=== PATIENT | male | born 1980 | race Caucasian/White ===

== ENCOUNTER 2020-06-21 05:51 | Inpatient (IN) | payer OTHER ==
[2020-06-21] VITALS (18 sets, daily range): BP systolic 74–133; BP diastolic 40–78
[~2020-06-21] VITALS: Ht 185.4 cm; Wt 147.9 kg
[~2020-06-21 05:51] MED LIST: GLIPIZIDE XL10 M1 PO; LISINOPRIL HCTZ1 TA1 PO; LOPRESSOR50 M1 PO; METFORMIN1000 MG PO; NEURONTIN300 MG PO; NIASPAN500 MG PO; NORFLEX100 MG PO; PREDNICOT20 MG PO
[2020-06-21 06:36] LABS: BASO # 0.1 10*3/uL (0.0-0.1); BASO % 0.5 % (0.0-1.0); EOS % 0.3 % (1.0-4.0); LYMPH % 7.1 % (27.0-41.0); MEAN CELL VOLUME 92.8 fl (80.0-94.0); MEAN CORPUSCULAR HGB 28.9 pg (27.0-31.0); MEAN CORPUSCULAR HGB CONC 31.1 g/dl (33.0-37.0); MEAN PLATELET VOLUME 11.4 fl (9.6-12.3); MONO % 7.1 % (3.0-9.0); NEUT # 12.1 10*3/uL (2.3-7.9); PLATELET COUNT AUTOMATED 333 10*3/uL (130-400); RED BLOOD COUNT 3.88 10*6/uL (4.50-5.90); WHITE BLOOD COUNT 14.5 10*3/uL (4.8-10.8)
[2020-06-21 06:54] LABS: ALBUMIN 2.5 gm/dl (3.1-4.5); CREATININE 2.9 mg/dL (0.70-1.30); POTASSIUM 4.4 mmol/L (3.5-5.1); TOTAL PROTEIN 6.7 gm/dL (6.4-8.2); TROPONIN I 0.021 ng/ml (<0.045)
[2020-06-21] MEDS ORDERED: ALLOPURINOL100 MG PO (12:06)
[2020-06-21] MEDS ORDERED: FENOFIBRATE145 M1 PO (12:07)
[2020-06-21] MEDS ORDERED: IRON325 M1 PO (12:09)
[2020-06-21] MEDS ORDERED: HYDRALAZINE HYD50 MG PO (12:11)
[2020-06-21] MEDS ORDERED: LEVOTHYROXINE125 MCG PO (12:12)
[2020-06-21] MEDS ORDERED: PRAVASTATIN SOD40 MG PO (12:14)
[2020-06-21] MEDS ORDERED: FISH OIL 1,0001 EAC4 PO (12:16)
[2020-06-21 21:18] LABS: CREATININE 2.67 mg/dL (0.70-1.30)
[2020-06-22] VITALS: BP 136/79
[2020-06-22 04:00] VITALS: BP 144/81
[2020-06-22 06:33] LABS: BASO % 0.5 % (0.0-1.0); EOS # 0.1 10*3/uL (0.0-0.4); EOS % 1.4 % (1.0-4.0); HEMATOCRIT 33.2 % (42.0-52.0); LYMPH # 0.8 10*3/uL (1.3-4.4); LYMPH % 9.7 % (27.0-41.0); MEAN CELL VOLUME 93.5 fl (80.0-94.0); MEAN PLATELET VOLUME 11.5 fl (9.6-12.3); MONO # 0.7 10*3/uL (0.1-1.0); MONO % 8.4 % (3.0-9.0); NEUT # 6.6 10*3/uL (2.3-7.9); NEUT % 78.1 % (47.0-73.0); PLATELET COUNT AUTOMATED 312 10*3/uL (130-400); RED BLOOD COUNT 3.55 10*6/uL (4.50-5.90); RED CELL DISTRI WIDTH 14.1 % (0-14.5); WHITE BLOOD COUNT 8.4 10*3/uL (4.8-10.8)
[2020-06-22 06:48] LABS: ALBUMIN 2.5 gm/dl (3.1-4.5); CREATININE 2.36 mg/dL (0.70-1.30); POTASSIUM 4.3 mmol/L (3.5-5.1); TOTAL PROTEIN 6.5 gm/dL (6.4-8.2)
[2020-06-22 08:00] VITALS: BP 125/77
[2020-06-22 09:04] LABS: VITAMIN D, 25-HYDROXY 36.4 ng/mL (30-100)
[2020-06-22 12:00] VITALS: BP 142/77
[2020-06-22 12:15] LABS: BILIRUBIN NEGATIVE (NEGATIVE); BLOOD TRACE-LYSED (NEGATIVE); CLARITY CLEAR (CLEAR); COLOR YELLOW (YELLOW); GLUCOSE 3+ (NEGATIVE); KETONE NEGATIVE (NEGATIVE); LEUKO ESTERASE NEGATIVE (NEGATIVE); NITRITE NEGATIVE (NEGATIVE); UROBILINOGEN 0.2 E.U./dl (0.2-1.0)
[2020-06-22 13:26] LABS: BACTERIA 1+
[2020-06-22 16:00] VITALS: BP 163/91
[2020-06-22 20:00] VITALS: BP 131/72
[2020-06-23] VITALS: BP 116/58
[2020-06-23 04:00] VITALS: BP 110/75
[2020-06-23 06:27] LABS: BASO # 0.1 10*3/uL (0.0-0.1); BASO % 0.3 % (0.0-1.0); EOS # 0.1 10*3/uL (0.0-0.4); EOS % 0.6 % (1.0-4.0); HEMATOCRIT 33.3 % (42.0-52.0); LYMPH # 1.3 10*3/uL (1.3-4.4); LYMPH % 8.8 % (27.0-41.0); MEAN CELL VOLUME 94.9 fl (80.0-94.0); MEAN CORPUSCULAR HGB 29.1 pg (27.0-31.0); MEAN CORPUSCULAR HGB CONC 30.6 g/dl (33.0-37.0); MEAN PLATELET VOLUME 11.1 fl (9.6-12.3); MONO # 0.7 10*3/uL (0.1-1.0); MONO % 4.6 % (3.0-9.0); NEUT # 12.9 10*3/uL (2.3-7.9); NEUT % 84.8 % (47.0-73.0); PLATELET COUNT AUTOMATED 300 10*3/uL (130-400); RED BLOOD COUNT 3.51 10*6/uL (4.50-5.90); RED CELL DISTRI WIDTH 14.5 % (0-14.5); WHITE BLOOD COUNT 15.1 10*3/uL (4.8-10.8)
[2020-06-23 06:36] LABS: ALBUMIN 2.3 gm/dl (3.1-4.5); CREATININE 2.3 mg/dL (0.70-1.30); POTASSIUM 4.5 mmol/L (3.5-5.1); TOTAL PROTEIN 6.3 gm/dL (6.4-8.2)
[2020-06-23 08:00] VITALS: BP 120/74
[2020-06-23 16:00] VITALS: BP 133/74
[2020-06-23 20:00] VITALS: BP 147/81
[2020-06-24] VITALS: BP 149/87
[2020-06-24 06:45] LABS: BASO # 0.1 10*3/uL (0.0-0.1); BASO % 0.7 % (0.0-1.0); EOS # 0.3 10*3/uL (0.0-0.4); EOS % 2.9 % (1.0-4.0); HEMATOCRIT 34.2 % (42.0-52.0); LYMPH # 1.5 10*3/uL (1.3-4.4); LYMPH % 17.6 % (27.0-41.0); MEAN CELL VOLUME 94.2 fl (80.0-94.0); MEAN CORPUSCULAR HGB 28.7 pg (27.0-31.0); MEAN CORPUSCULAR HGB CONC 30.4 g/dl (33.0-37.0); MEAN PLATELET VOLUME 11.2 fl (9.6-12.3); MONO # 0.5 10*3/uL (0.1-1.0); MONO % 6.3 % (3.0-9.0); NEUT # 5.9 10*3/uL (2.3-7.9); NEUT % 69.6 % (47.0-73.0); NUCLEATED RED BLOOD CELL 0.2 % (0.0-0.0); PLATELET COUNT AUTOMATED 287 10*3/uL (130-400); RED BLOOD COUNT 3.63 10*6/uL (4.50-5.90); RED CELL DISTRI WIDTH 14.1 % (0-14.5); WHITE BLOOD COUNT 8.5 10*3/uL (4.8-10.8)
[2020-06-24 06:56] LABS: ALBUMIN 2.3 gm/dl (3.1-4.5); CREATININE 2.07 mg/dL (0.70-1.30); POTASSIUM 3.9 mmol/L (3.5-5.1); TOTAL PROTEIN 6.4 gm/dL (6.4-8.2)
[2020-06-24 08:00] VITALS: BP 167/97
[2020-06-24 10:52] VITALS: BP 158/77
[2020-06-24 12:00] VITALS: BP 155/82
[2020-06-24 16:00] VITALS: BP 171/89
[2020-06-25] VITALS: BP 151/79
[2020-06-25 08:00] VITALS: BP 172/97
[2020-06-25 09:53] LABS: HEMATOCRIT 35.2 % (42.0-52.0); MEAN CELL VOLUME 91.4 fl (80.0-94.0); MEAN CORPUSCULAR HGB 28.8 pg (27.0-31.0); MEAN CORPUSCULAR HGB CONC 31.5 g/dl (33.0-37.0); MEAN PLATELET VOLUME 10.3 fl (9.6-12.3); PLATELET COUNT AUTOMATED 280 10*3/uL (130-400); RED BLOOD COUNT 3.85 10*6/uL (4.50-5.90); RED CELL DISTRI WIDTH 13.8 % (0-14.5); WHITE BLOOD COUNT 6.7 10*3/uL (4.8-10.8)
[2020-06-25 09:59] LABS: CREATININE 2.1 mg/dL (0.70-1.30); POTASSIUM 4.1 mmol/L (3.5-5.1)
[2020-06-25 10:33] LABS: ATYPICAL LYMPHS 1 % (0-0); BASOPHILS 1 % (0-1); PLATELET SUFFICIENCY NORMAL (NORMAL); TOTAL CELLS COUNTED 100 #CELLS
[2020-06-25] MEDS ORDERED: METOPROLOL SUCC50 M1 PO (13:08)
[2020-06-25] MEDS ORDERED: DOXYCYCLINE100 MG PO (13:08)
[2020-06-25] MEDS ORDERED: ATORVASTATIN CA20 M1 PO (13:08)
== END 2020-06-25 16:51 | disposition home or self-care (01) | DRG 280 ==
LOC: ED 05:51 → EDHOLD 07:04 → ICCU 07:04 → EDHOLD 07:47 → ICCU 11:08 → 5E 06-23 18:15
PROVIDERS: Emergency Medicine; Internal Medicine; Internal Medicine Nephrology; Student in an Organized Health Care Education/Training Program; ADMIT Internal Medicine
PROC: 3E073KZ Introduction of Other Diagnostic Substance into Coronary Artery, Percutaneous Approach (ICD-10-PCS; principal; 2020-06-23)
PROC: 4A02XM4 Measurement of Cardiac Total Activity, External Approach (ICD-10-PCS; principal; 2020-06-23)
DX: I21.4 Non-ST elevation (NSTEMI) myocardial infarction (principal); N17.0 Acute kidney failure with tubular necrosis; I47.1 Supraventricular tachycardia; E87.2 Acidosis; I48.20 Chronic atrial fibrillation, unspecified; Z68.41 Body mass index [BMI] 40.0-44.9, adult; D64.9 Anemia, unspecified; I10 Essential (primary) hypertension; E78.5 Hyperlipidemia, unspecified; E03.9 Hypothyroidism, unspecified; R79.89 Other specified abnormal findings of blood chemistry; I95.9 Hypotension, unspecified; I48.91 Unspecified atrial fibrillation; E11.65 Type 2 diabetes mellitus with hyperglycemia; R74.0 Nonspecific elevation of levels of transaminase and lactic acid dehydrogenase [LDH]; Z83.3 Family history of diabetes mellitus; Z82.3 Family history of stroke; Z80.8 Family history of malignant neoplasm of other organs or systems

== ENCOUNTER 2020-12-04 08:31 | Inpatient (IN) | payer OTHER ==
[~2020-12-04] VITALS: Ht 185.4 cm; Wt 143.6 kg
[~2020-12-04 08:31] MED LIST changes: +ALLOPURINOL100 MG PO; +ATORVASTATIN CA20 M1 PO; +DOXYCYCLINE100 MG PO; +FENOFIBRATE145 M1 PO; +FISH OIL 1,0001 EAC4 PO; +HYDRALAZINE HYD50 MG PO; +IRON325 M1 PO; +LEVOTHYROXINE125 MCG PO; +METOPROLOL SUCC50 M1 PO; +PRAVASTATIN SOD40 MG PO
[2020-12-04 08:46] VITALS: BP 118/52
[2020-12-04 08:50] VITALS: BP 118/52
[2020-12-04 08:56] LABS: BASO % 0.1 % (0.0-1.0); HEMATOCRIT 38.4 % (42.0-52.0); LYMPH # 0.6 10*3/uL (1.3-4.4); LYMPH % 6.1 % (27.0-41.0); MEAN CELL VOLUME 89.7 fl (80.0-94.0); MEAN CORPUSCULAR HGB 28.3 pg (27.0-31.0); MEAN CORPUSCULAR HGB CONC 31.5 g/dl (33.0-37.0); MEAN PLATELET VOLUME 11.2 fl (9.6-12.3); MONO # 0.4 10*3/uL (0.1-1.0); MONO % 4.6 % (3.0-9.0); NEUT # 8.1 10*3/uL (2.3-7.9); NEUT % 88.8 % (47.0-73.0); PLATELET COUNT AUTOMATED 219 10*3/uL (130-400); RED BLOOD COUNT 4.28 10*6/uL (4.50-5.90); RED CELL DISTRI WIDTH 14.4 % (0-14.5); WHITE BLOOD COUNT 9.1 10*3/uL (4.8-10.8)
[2020-12-04 09:14] LABS: ACT PARTIAL THROMBO TIME 34.2 SECONDS (20.0-32.1)
[2020-12-04 09:16] LABS: ALBUMIN 2.5 gm/dl (3.1-4.5); CREATININE 3.4 mg/dL (0.70-1.30); POTASSIUM 3.7 mmol/L (3.5-5.1); TROPONIN I 0.036 ng/ml (<0.045)
[2020-12-04 09:20] VITALS: BP 110/42
[2020-12-04 11:40] VITALS: BP 124/65
[2020-12-04] MEDS ORDERED: VICTOZA 2-0.6 MG/0.1 SQ (12:03)
[2020-12-04 14:50] LABS: ABG BASE EXCESS -4.6 mmol/L (-2.0-2.0); ARTERIAL BLOOD GAS PH 7.357 (7.35-7.45)
[2020-12-04 16:00] VITALS: BP 127/79
[2020-12-04 18:04] LABS: BILIRUBIN Negative (Negative); BLOOD 1+ (Negative); CLARITY Turbid (Clear); COLOR Yellow (Yellow); GLUCOSE Negative (Negative); KETONE Negative (Negative); LEUKO ESTERASE Negative (Negative); NITRITE Negative (Negative); UROBILINOGEN 0.2 E.U./dl (0.0-1.0)
[2020-12-04 18:12] LABS: BACTERIA 2+
[2020-12-04 20:00] VITALS: BP 84/58
[2020-12-04 20:14] LABS: ABG BASE EXCESS -11.4 mmol/L (-2.0-2.0); ARTERIAL BLOOD GAS PH 7.18 (7.35-7.45)
[2020-12-04 21:12] LABS: CREATININE 3.67 mg/dL (0.70-1.30); POTASSIUM 4.4 mmol/L (3.5-5.1)
[2020-12-05] VITALS (11 sets, daily range): BP systolic 117–155; BP diastolic 70–90
[2020-12-05 00:56] LABS: ABG BASE EXCESS -10.6 mmol/L (-2.0-2.0); ARTERIAL BLOOD GAS PH 7.192 (7.35-7.45)
[2020-12-05 05:51] LABS: ALBUMIN 2.1 gm/dl (3.1-4.5); CREATININE 4.27 mg/dL (0.70-1.30); POTASSIUM 4.7 mmol/L (3.5-5.1); TOTAL PROTEIN 6.8 gm/dL (6.4-8.2)
[2020-12-05 05:56] LABS: THYROID STIM HORMONE (HS) 1.02 uIU/ml (0.358-4.75)
[2020-12-05 06:10] LABS: BASO % 0.1 % (0.0-1.0); HEMATOCRIT 37.9 % (42.0-52.0); LYMPH # 0.5 10*3/uL (1.3-4.4); LYMPH % 5.5 % (27.0-41.0); MEAN CORPUSCULAR HGB 29.1 pg (27.0-31.0); MEAN CORPUSCULAR HGB CONC 31.7 g/dl (33.0-37.0); MEAN PLATELET VOLUME 11.6 fl (9.6-12.3); MONO # 0.5 10*3/uL (0.1-1.0); MONO % 5.5 % (3.0-9.0); NEUT # 7.1 10*3/uL (2.3-7.9); NEUT % 88.2 % (47.0-73.0); PLATELET COUNT AUTOMATED 248 10*3/uL (130-400); RED BLOOD COUNT 4.12 10*6/uL (4.50-5.90); RED CELL DISTRI WIDTH 14.5 % (0-14.5); WHITE BLOOD COUNT 8.1 10*3/uL (4.8-10.8)
[2020-12-05 06:15] LABS: ARTERIAL BLOOD GAS PH 7.212 (7.35-7.45)
[2020-12-05 07:53] LABS: ABG BASE EXCESS -8.4 mmol/L (-2.0-2.0); ARTERIAL BLOOD GAS PH 7.221 (7.35-7.45)
[2020-12-05 08:48] LABS: VITAMIN D, 25-HYDROXY 26.3 ng/mL (30-100)
[2020-12-05 09:12] LABS: FERRITIN 2065.9 ng/mL (22.0-322.0)
[2020-12-05 13:42] LABS: ARTERIAL BLOOD GAS PH 7.238 (7.35-7.45)
[2020-12-05 13:43] LABS: ABG BASE EXCESS -8.3 mmol/L (-2.0-2.0)
[2020-12-05 13:54] LABS: CREATININE 4.62 mg/dL (0.70-1.30); POTASSIUM 4.9 mmol/L (3.5-5.1)
[2020-12-05 17:06] LABS: ABG BASE EXCESS -7.4 mmol/L (-2.0-2.0); ARTERIAL BLOOD GAS PH 7.31 (7.35-7.45)
[2020-12-06] VITALS (12 sets, daily range): BP systolic 100–176; BP diastolic 55–90
[2020-12-06 06:10] LABS: HEMATOCRIT 34.6 % (42.0-52.0); LYMPH # 0.3 10*3/uL (1.3-4.4); LYMPH % 5.4 % (27.0-41.0); MEAN CELL VOLUME 90.3 fl (80.0-94.0); MEAN CORPUSCULAR HGB 28.5 pg (27.0-31.0); MEAN CORPUSCULAR HGB CONC 31.5 g/dl (33.0-37.0); MEAN PLATELET VOLUME 11.9 fl (9.6-12.3); MONO # 0.4 10*3/uL (0.1-1.0); MONO % 8.2 % (3.0-9.0); NEUT # 4.4 10*3/uL (2.3-7.9); NEUT % 84.6 % (47.0-73.0); PLATELET COUNT AUTOMATED 252 10*3/uL (130-400); RED BLOOD COUNT 3.83 10*6/uL (4.50-5.90); RED CELL DISTRI WIDTH 13.6 % (0-14.5); WHITE BLOOD COUNT 5.1 10*3/uL (4.8-10.8)
[2020-12-06 06:16] LABS: CREATININE 5.41 mg/dL (0.70-1.30); POTASSIUM 4.1 mmol/L (3.5-5.1)
[2020-12-06 06:20] LABS: TOTAL PROTEIN 6.2 gm/dL (6.4-8.2)
[2020-12-06 08:18] LABS: ARTERIAL BLOOD GAS PH 7.295 (7.35-7.45)
[2020-12-06 08:19] LABS: ABG BASE EXCESS -5.6 mmol/L (-2.0-2.0)
[2020-12-06 09:01] LABS: LDH 528 U/L (87-241); TRIGLYCERIDES 553 mg/dl (<150)
[2020-12-06 10:09] LABS: HEP B CORE AB, IGM Negative (Negative); HEPATITIS B SURFACE AG Negative (Negative); HEPATITIS C VIRUS ANTIBODY <0.1 s/co (0.0-0.9)
[2020-12-06 19:01] LABS: ARTERIAL BLOOD GAS PH 7.282 (7.35-7.45)
[2020-12-06 19:02] LABS: ABG BASE EXCESS -5.9 mmol/L (-2.0-2.0)
[2020-12-07] VITALS (21 sets, daily range): BP systolic 101–209; BP diastolic 63–113
[2020-12-07 06:07] LABS: CREATININE 6.48 mg/dL (0.70-1.30); POTASSIUM 4.6 mmol/L (3.5-5.1); TOTAL PROTEIN 6.1 gm/dL (6.4-8.2)
[2020-12-07 06:15] LABS: HEMATOCRIT 34.3 % (42.0-52.0); MEAN CELL VOLUME 90.3 fl (80.0-94.0); MEAN CORPUSCULAR HGB 28.4 pg (27.0-31.0); MEAN CORPUSCULAR HGB CONC 31.5 g/dl (33.0-37.0); MEAN PLATELET VOLUME 11.3 fl (9.6-12.3); PLATELET COUNT AUTOMATED 291 10*3/uL (130-400); RED CELL DISTRI WIDTH 14.4 % (0-14.5); WHITE BLOOD COUNT 6.2 10*3/uL (4.8-10.8)
[2020-12-07 06:20] LABS: ACT PARTIAL THROMBO TIME 56.6 SECONDS (20.0-32.1); INTERNATIONAL NORM RATIO 1.1 (2.0-3.5)
[2020-12-07 07:28] LABS: ARTERIAL BLOOD GAS PH 7.299 (7.35-7.45)
[2020-12-07 07:34] LABS: ABG BASE EXCESS -5.1 mmol/L (-2.0-2.0)
[2020-12-07 07:43] LABS: BURR CELLS FEW; PLATELET SUFFICIENCY NORMAL (NORMAL); TOTAL CELLS COUNTED 100 #CELLS
[2020-12-07 11:23] LABS: ARTERIAL BLOOD GAS PH 7.313 (7.35-7.45)
[2020-12-07 11:33] LABS: ABG BASE EXCESS -5.6 mmol/L (-2.0-2.0)
[2020-12-07 14:30] LABS: ABG BASE EXCESS -6.4 mmol/L (-2.0-2.0); ARTERIAL BLOOD GAS PH 7.301 (7.35-7.45)
[2020-12-07 17:04] LABS: ABG BASE EXCESS -6.9 mmol/L (-2.0-2.0); ARTERIAL BLOOD GAS PH 7.252 (7.35-7.45)
[2020-12-08] VITALS (42 sets, daily range): BP systolic 85–190; BP diastolic 53–101
[2020-12-08 06:21] LABS: HEMATOCRIT 37.5 % (42.0-52.0); MEAN CELL VOLUME 91.7 fl (80.0-94.0); MEAN CORPUSCULAR HGB 28.6 pg (27.0-31.0); MEAN CORPUSCULAR HGB CONC 31.2 g/dl (33.0-37.0); MEAN PLATELET VOLUME 11.4 fl (9.6-12.3); NUCLEATED RED BLOOD CELL 0.3 % (0.0-0.0); PLATELET COUNT AUTOMATED 326 10*3/uL (130-400); RED BLOOD COUNT 4.09 10*6/uL (4.50-5.90); RED CELL DISTRI WIDTH 14.6 % (0-14.5); WHITE BLOOD COUNT 7.7 10*3/uL (4.8-10.8)
[2020-12-08 06:41] LABS: POTASSIUM 4.3 mmol/L (3.5-5.1)
[2020-12-08 06:46] LABS: ALBUMIN 2.2 gm/dl (3.1-4.5); CREATININE 7.62 mg/dL (0.70-1.30); TOTAL PROTEIN 6.8 gm/dL (6.4-8.2)
[2020-12-08 07:06] LABS: ACT PARTIAL THROMBO TIME 34.3 SECONDS (20.0-32.1); INTERNATIONAL NORM RATIO 1.1 (2.0-3.5)
[2020-12-08 07:31] LABS: PLATELET SUFFICIENCY NORMAL (NORMAL); TOTAL CELLS COUNTED 100 #CELLS
[2020-12-08 08:16] LABS: ABG BASE EXCESS -7.4 mmol/L (-2.0-2.0); ARTERIAL BLOOD GAS PH 7.24 (7.35-7.45)
[2020-12-08 10:33] LABS: BILIRUBIN Negative (Negative); BLOOD Negative (Negative); CLARITY Cloudy (Clear); COLOR Yellow (Yellow); GLUCOSE Negative (Negative); KETONE Negative (Negative); LEUKO ESTERASE Negative (Negative); NITRITE Negative (Negative); SPECIFIC GRAVITY 1.015 (1.001-1.030); UROBILINOGEN 0.2 E.U./dl (0.0-1.0)
[2020-12-08 11:06] LABS: BACTERIA 3+; CALCIUM OXALATE CRYSTALS 1+; RBC 41-50 rbc/hpf (0-2)
[2020-12-08 13:37] LABS: ARTERIAL BLOOD GAS PH 7.25 (7.35-7.45)
[2020-12-08 13:41] LABS: ABG BASE EXCESS -7.1 mmol/L (-2.0-2.0)
[2020-12-09 06:10] LABS: HEP B CORE AB TOTAL Negative (Negative); HEPATITIS B SURFACE AB Non Reactive (.); HEPATITIS B SURFACE AG Negative (Negative); HEPATITIS C AB <0.1 (0.0-0.9)
== END 2020-12-08 16:40 | disposition short-term general hospital (02) | DRG 208 ==
LOC: ED 08:31 → EDHOLD 10:10 → ICCU 10:10 → EDHOLD 10:18 → ICCU 10:43
PROVIDERS: Emergency Medicine; Internal Medicine; Internal Medicine Critical Care Medicine; Internal Medicine Nephrology; Student in an Organized Health Care Education/Training Program; ADMIT Internal Medicine; ATTEND Internal Medicine
PROC: XW033E5 Introduction of Remdesivir Anti-infective into Peripheral Vein, Percutaneous Approach, New Technology Group 5 (ICD-10-PCS; principal; 2020-12-04)
PROC: 5A1945Z Respiratory Ventilation, 24-96 Consecutive Hours (ICD-10-PCS; 2020-12-04)
PROC: 5A09357 Assistance with Respiratory Ventilation, Less than 24 Consecutive Hours, Continuous Positive Airway Pressure (ICD-10-PCS; 2020-12-04)
PROC: 0BH17EZ Insertion of Endotracheal Airway into Trachea, Via Natural or Artificial Opening (ICD-10-PCS; 2020-12-04)
PROC: 02HV33Z Insertion of Infusion Device into Superior Vena Cava, Percutaneous Approach (ICD-10-PCS; 2020-12-04)
PROC: B548ZZA Ultrasonography of Superior Vena Cava, Guidance (ICD-10-PCS; 2020-12-04)
PROC: 03HY32Z Insertion of Monitoring Device into Upper Artery, Percutaneous Approach (ICD-10-PCS; 2020-12-04)
DX: U07.1 COVID-19 (principal); J96.01 Acute respiratory failure with hypoxia; N17.0 Acute kidney failure with tubular necrosis; E43 Unspecified severe protein-calorie malnutrition; J12.82 Pneumonia due to coronavirus disease 2019; N18.4 Chronic kidney disease, stage 4 (severe); Z68.41 Body mass index [BMI] 40.0-44.9, adult; I48.91 Unspecified atrial fibrillation; E03.9 Hypothyroidism, unspecified; E78.5 Hyperlipidemia, unspecified; E11.22 Type 2 diabetes mellitus with diabetic chronic kidney disease; I12.9 Hypertensive chronic kidney disease with stage 1 through stage 4 chronic kidney disease, or unspecified chronic kidney disease; E66.01 Morbid (severe) obesity due to excess calories; D50.9 Iron deficiency anemia, unspecified; M10.9 Gout, unspecified; E11.65 Type 2 diabetes mellitus with hyperglycemia; E78.1 Pure hyperglyceridemia; E78.00 Pure hypercholesterolemia, unspecified; R74.01 Elevation of levels of liver transaminase levels; Z89.421 Acquired absence of other right toe(s); Z82.49 Family history of ischemic heart disease and other diseases of the circulatory system; Z80.8 Family history of malignant neoplasm of other organs or systems; I25.2 Old myocardial infarction; Z79.899 Other long term (current) drug therapy